=== PATIENT | female | born 1980 | race Hispanic/Latino ===

== ENCOUNTER → 2016-05-10 | Outpatient (CLI) | payer OTHER, BC ==
[2016-05-10 18:18] LABS: BASO # 0.1 K/mm3 (0.0-0.2); BASO % 0.8 % (0.0-1.0); EOS # 0.5 K/mm3 (0.0-0.50); EOS % 6.1 % (0.0-3.0); LARGE UNSTAINED CELL # 0.1 K/mm3 (0.0-0.4); LARGE UNSTAINED CELL % 1.5 % (0.0-4.0); LYMPH % 23.6 % (24.0-44.0); MEAN CORPUSCULAR HEMOGLOBIN 29.9 pg (27.0-33.0); MEAN CORPUSCULAR HGB CONC 32.4 g/dl (32.0-36.5); MEAN CORPUSCULAR VOLUME 92.1 fl (80.0-96.0); MONO # 0.3 K/mm3 (0.0-0.8); NEUTROPHILS # 5.1 K/mm3 (1.8-7.7); NEUTROPHILS % 64.1 % (36.0-66.0); PLATELET COUNT, AUTOMATED 335 k/mm3 (150-450); RED CELL DISTRIBUTION WIDTH 13.1 % (11.5-14.5); WHITE BLOOD COUNT 7.9 K/mm3 (4.0-10.0)
[2016-05-10 18:38] LABS: ALBUMIN 3.9 GM/DL (3.2-5.2); ALKALINE PHOSPHATASE 115 U/L (45-117); ALT/SGPT 40 U/L (12-78); ANION GAP 9 MEQ/L (8-16); AST/SGOT 20 U/L (15-37); BILIRUBIN,TOTAL 0.2 MG/DL (0.2-1.0); BLOOD UREA NITROGEN 16 MG/DL (7-18); CALCIUM LEVEL 9.1 MG/DL (8.5-10.1); CARBON DIOXIDE LEVEL 27 MEQ/L (21-32); CHLORIDE LEVEL 104 MEQ/L (98-107); CHOLESTEROL LEVEL 172 MG/DL (<200); CREATININE FOR GFR 0.74 MG/DL (0.55-1.02); GLOMERULAR FILTRATION RATE > 60.0 (>60); GLUCOSE, FASTING 81 MG/DL (70-105); POTASSIUM SERUM 4.4 MEQ/L (3.5-5.1); SODIUM LEVEL 140 MEQ/L (136-145); TOTAL PROTEIN 7.8 GM/DL (6.4-8.2); TRIGLYCERIDES LEVEL 73 MG/DL (<150)
== END ==
LOC: M WUC 09:04
PROVIDERS: ATTEND Family Medicine
DX: Z00.00 Encounter for general adult medical examination without abnormal findings (principal)

== ENCOUNTER → 2016-06-05 | Outpatient (REF) | payer OTHER, BC | LOC: M LAB REF 12:43 | PROVIDERS: ATTEND Family Medicine | DX: Z12.4 Encounter for screening for malignant neoplasm of cervix (principal); Z11.3 Encounter for screening for infections with a predominantly sexual mode of transmission ==

== ENCOUNTER → 2016-08-09 | Outpatient (REF) | payer OTHER, BC | LOC: M LAB REF 19:48 | PROVIDERS: ATTEND Physician Assistant | DX: R10.32 Left lower quadrant pain (principal) ==

== ENCOUNTER → 2017-04-24 | Outpatient (REF) | payer OTHER | LOC: M LAB REF 11:54 | DX: J06.9 Acute upper respiratory infection, unspecified (principal); R05 Cough ==

== ENCOUNTER 2018-08-24 20:34 | Emergency (ER) | payer BC ==
[~2018-08-24] VITALS: Ht 147.3 cm; Wt 86.8 kg
[2018-08-24] MEDS ORDERED: PROG100C PO (20:49)
[2018-08-24] MEDS ORDERED: ALBU0.63 NEB (20:49)
[2018-08-24] MEDS ORDERED: SPIR1CAP INH (20:49)
[2018-08-24] MEDS ORDERED: BREO1INH PO (20:49)
[2018-08-24] MEDS ORDERED: SING10TA32 PO (20:49)
[2018-08-24] MEDS ORDERED: ZYRTTAB8 PO (20:49)
[2018-08-24 21:35] LABS: BASO # 0.1 10^3/uL (0.0-0.2); EOS % 8.7 % (0.0-3.0); HEMATOCRIT 36.9 % (36.0-47.0); HEMOGLOBIN 12.2 g/dl (12.0-15.5); LYMPH # 3.3 10^3/uL (1.5-4.5); LYMPH % 27.9 % (24.0-44.0); MEAN CORPUSCULAR HEMOGLOBIN 30.3 pg (27.0-33.0); MEAN CORPUSCULAR HGB CONC 33.1 g/dl (32.0-36.5); MEAN CORPUSCULAR VOLUME 91.6 fl (80.0-96.0); MONO # 0.7 10^3/uL (0.0-0.8); MONO % 6.3 % (0.0-5.0); NEUTROPHILS # 6.6 10^3/uL (1.8-7.7); NEUTROPHILS % 55.8 % (36.0-66.0); PLATELET COUNT, AUTOMATED 375 10^3/uL (150-450); RED BLOOD COUNT 4.03 10^6/uL (4.00-5.40); WHITE BLOOD COUNT 11.7 10^3/uL (4.0-10.0)
[2018-08-24 21:59] LABS: BLOOD UREA NITROGEN 15 MG/DL (7-18); CALCIUM LEVEL 8.9 MG/DL (8.5-10.1); CARBON DIOXIDE LEVEL 28 MEQ/L (21-32); CHLORIDE LEVEL 105 MEQ/L (98-107); CREATININE FOR GFR 0.89 MG/DL (0.55-1.30); GLOMERULAR FILTRATION RATE > 60.0 (>60); GLUCOSE, FASTING 89 MG/DL (70-100); HCG, SERUM QUANTITATIVE < 1.0 MIU/ML; POTASSIUM SERUM 4.4 MEQ/L (3.5-5.1); SODIUM LEVEL 140 MEQ/L (136-145)
--- NOTE | 2018-08-25 00:10 | REPVR ---
EXAM: US Pelvis, Transvaginal EXAM DATE/TIME: 08/24/2018 11:28 PM CLINICAL HISTORY: 38 years old, female; Signs and symptoms; Menstruation abnormalities; Excessive menstruation; With irregular cycle; Additional info: Heavy vaginal bleeding TECHNIQUE: Imaging protocol: Real-time transvaginal pelvic ultrasound with image documentation. Transvaginal imaging was used for better evaluation of the endometrium and adnexa. COMPARISON: No relevant prior studies available. FINDINGS: Uterus/cervix: Uterus measures 7.7 x 4.4 x 5.3 cm. Endometrial echocomplex measures 12.5 mm. Further evaluation with sonohysterogram would be of additional benefit if clinically desired. Small cervical nabothian cysts demonstrated. Right adnexa: Right ovary measures 2.2 x 1.6 with 2.1 cm. Resistive index 0.49. Left adnexa: Left ovary measures 3 x 2.1 x 1.8 cm. Resistive index 0.61. Bladder: Bladder is empty and cannot be evaluated. Free fluid: None. IMPRESSION: Thickened endometrial echo complex is noted above. Further evaluation with sonohysterogram may be of additional benefit. Electronically signed by: Andrea Luo On 08/25/2018 00:10:37 AM
[2018-08-25 00:11] LABS: CHLAMYDIA DNA AMPLIFICATION NEGATIVE (NEGATIVE); GC DNA AMPLIFICATION NEGATIVE (NEGATIVE)
[2018-08-25 00:16] VITALS: BP 122/83
[2018-08-25] MEDS ORDERED: SPRI28TA PO ×2 (00:25)
[2018-08-25] MEDS ORDERED: ZOFR4TAB16 PO ×2 (00:25)
--- NOTE | 2018-08-26 14:04 | ED PDOC ---
Post-Departure Follow-Up dr hernandez faxed formal report of pelvic us for fu Gifty Keane MD August 26, 2018 14:04
== END 2018-08-25 00:16 | disposition home or self-care (01) ==
LOC: M ED 20:34
DX: N93.8 Other specified abnormal uterine and vaginal bleeding (principal); J45.909 Unspecified asthma, uncomplicated; Z87.42 Personal history of other diseases of the female genital tract; Z79.3 Long term (current) use of hormonal contraceptives; Z79.51 Long term (current) use of inhaled steroids; Z79.899 Other long term (current) drug therapy

== ENCOUNTER → 2018-09-21 | Outpatient (CLI) | payer BC ==
[~2018-09-21] MED LIST: ALBU0.63 NEB; BREO1INH PO; PROG100C PO; SING10TA32 PO; SPIR1CAP INH; SPRI28TA PO; ZOFR4TAB16 PO; ZYRTTAB8 PO
[2018-09-21 13:34] LABS: BASO # 0.1 10^3/uL (0.0-0.2); EOS # 1.1 10^3/uL (0.0-0.50); EOS % 8.7 % (0.0-3.0); HEMATOCRIT 31.2 % (36.0-47.0); HEMOGLOBIN 9.7 g/dl (12.0-15.5); LYMPH # 2.5 10^3/uL (1.5-4.5); LYMPH % 20.9 % (24.0-44.0); MEAN CORPUSCULAR HEMOGLOBIN 27.4 pg (27.0-33.0); MEAN CORPUSCULAR HGB CONC 31.1 g/dl (32.0-36.5); MEAN CORPUSCULAR VOLUME 88.1 fl (80.0-96.0); MONO # 0.5 10^3/uL (0.0-0.8); NEUTROPHILS # 7.9 10^3/uL (1.8-7.7); PLATELET COUNT, AUTOMATED 476 10^3/uL (150-450); RED BLOOD COUNT 3.54 10^6/uL (4.00-5.40); WHITE BLOOD COUNT 12.1 10^3/uL (4.0-10.0)
[2018-09-25 10:54] LABS: ANTI TETANUS ANTIBODY 1.35 IU/mL (<0.10); STREP PNEUMO TYPE 1 5.2 ug/mL (>1.3); STREP PNEUMO TYPE 12F <0.1 ug/mL (>1.3); STREP PNEUMO TYPE 14 5.9 ug/mL (>1.3); STREP PNEUMO TYPE 18C <0.1 ug/mL (>1.3); STREP PNEUMO TYPE 19A 0.2 ug/mL (>1.3); STREP PNEUMO TYPE 19F 0.7 ug/mL (>1.3); STREP PNEUMO TYPE 23F <0.1 ug/mL (>1.3); STREP PNEUMO TYPE 3 0.6 ug/mL (>1.3); STREP PNEUMO TYPE 4 <0.1 ug/mL (>1.3); STREP PNEUMO TYPE 6B <0.1 ug/mL (>1.3); STREP PNEUMO TYPE 7F 4.2 ug/mL (>1.3); STREP PNEUMO TYPE 8 1.7 ug/mL (>1.3); STREP PNEUMO TYPE 9N 0.1 ug/mL (>1.3); STREP PNEUMO TYPE 9V 0.1 ug/mL (>1.3)
== END ==
LOC: M WUC 08:59
PROVIDERS: ATTEND Physician Assistant
DX: J32.9 Chronic sinusitis, unspecified (principal); J30.1 Allergic rhinitis due to pollen

== ENCOUNTER → 2018-09-28 | Outpatient (CLI) | payer BC ==
[2018-09-28 13:40] LABS: HEMATOCRIT 33.8 % (36.0-47.0); HEMOGLOBIN 10.5 g/dl (12.0-15.5); MEAN CORPUSCULAR HEMOGLOBIN 27.3 pg (27.0-33.0); MEAN CORPUSCULAR HGB CONC 31.1 g/dl (32.0-36.5); MEAN CORPUSCULAR VOLUME 87.8 fl (80.0-96.0); PLATELET COUNT, AUTOMATED 546 10^3/uL (150-450); RED BLOOD COUNT 3.85 10^6/uL (4.00-5.40); WHITE BLOOD COUNT 13.3 10^3/uL (4.0-10.0)
[2018-09-28 14:15] LABS: FREE T4 1.15 NG/DL (0.76-1.46); THYROID STIMULATING HORMONE 0.751 uIU/ML (0.358-3.740)
== END ==
LOC: M SMT 09:36
PROVIDERS: ATTEND Obstetrics & Gynecology
DX: N93.9 Abnormal uterine and vaginal bleeding, unspecified (principal)

== ENCOUNTER → 2018-10-21 | Outpatient (CLI) | payer BC ==
[~2018-10-21] MED LIST changes: -PROG100C PO; +PROG1CAP8 PO
[2018-10-21 17:57] LABS: BASO # 0.1 10^3/uL (0.0-0.2); EOS # 1.1 10^3/uL (0.0-0.50); EOS % 10.7 % (0.0-3.0); HEMATOCRIT 36.8 % (36.0-47.0); HEMOGLOBIN 11.6 g/dl (12.0-15.5); LYMPH # 3.5 10^3/uL (1.5-4.5); LYMPH % 32.5 % (24.0-44.0); MEAN CORPUSCULAR HEMOGLOBIN 27.6 pg (27.0-33.0); MEAN CORPUSCULAR HGB CONC 31.5 g/dl (32.0-36.5); MEAN CORPUSCULAR VOLUME 87.6 fl (80.0-96.0); MONO # 0.6 10^3/uL (0.0-0.8); MONO % 5.7 % (0.0-5.0); NEUTROPHILS # 5.3 10^3/uL (1.8-7.7); NEUTROPHILS % 49.9 % (36.0-66.0); PLATELET COUNT, AUTOMATED 437 10^3/uL (150-450); WHITE BLOOD COUNT 10.7 10^3/uL (4.0-10.0)
== END ==
LOC: M SMT 15:09
PROVIDERS: ATTEND Physician Assistant
DX: R79.9 Abnormal finding of blood chemistry, unspecified (principal)

== ENCOUNTER → 2018-11-10 | Outpatient (REF) | payer BC | LOC: M LAB REF 18:27 | PROVIDERS: ATTEND Obstetrics & Gynecology | DX: N93.9 Abnormal uterine and vaginal bleeding, unspecified (principal) ==

== ENCOUNTER → 2018-11-11 | Outpatient (CLI) | payer BC ==
[2018-11-11 17:38] LABS: BASO # 0.1 10^3/uL (0.0-0.2); BASO % 0.9 % (0.0-1.0); EOS # 0.6 10^3/uL (0.0-0.50); EOS % 7.2 % (0.0-3.0); HEMATOCRIT 38.4 % (36.0-47.0); HEMOGLOBIN 11.9 g/dl (12.0-15.5); LYMPH # 2.6 10^3/uL (1.5-4.5); LYMPH % 29.3 % (24.0-44.0); MEAN CORPUSCULAR HEMOGLOBIN 26.6 pg (27.0-33.0); MEAN CORPUSCULAR VOLUME 85.9 fl (80.0-96.0); MONO # 0.8 10^3/uL (0.0-0.8); MONO % 8.9 % (0.0-5.0); NEUTROPHILS # 4.7 10^3/uL (1.8-7.7); NEUTROPHILS % 53.5 % (36.0-66.0); PLATELET COUNT, AUTOMATED 359 10^3/uL (150-450); RED BLOOD COUNT 4.47 10^6/uL (4.00-5.40); WHITE BLOOD COUNT 8.9 10^3/uL (4.0-10.0)
--- NOTE | 2018-11-12 01:41 | REP ---
Clinical: Acute cough . Comparison: 11/30/2017 . Technique: PA and lateral. Findings: The mediastinum and cardiac silhouette are normal. The lung moise are clear and without acute consolidation, effusion, or pneumothorax. The skeletal structures are intact and normal. Impression: 1. No acute cardiopulmonary process. Electronically Signed by Joel Gallo MD 11/12/2018 01:33 A
[2018-11-18 00:08] LABS: ALPHA 1 ANTITRYPSIN 127 mg/dL (90-200); ASPERGILLUS FLAVUS ABY Negative (Neg:<1:1); ASPERGILLUS FUMIGATUS ABY Negative (Neg:<1:1); ASPERGILLUS NIGER ABY Negative (Neg:<1:1)
== END ==
LOC: M WUC 11:38
PROVIDERS: ATTEND Physician Assistant
DX: R05 Cough (principal); J30.1 Allergic rhinitis due to pollen; J30.89 Other allergic rhinitis; J45.40 Moderate persistent asthma, uncomplicated